=== PATIENT | male | born 1960 | race Caucasian/White ===

== ENCOUNTER 2019-03-21 11:22 | Emergency (ER) | payer OTHER ==
[~2019-03-21] VITALS: Ht 177.8 cm; Wt 117.0 kg
[2019-03-21 11:25] VITALS: Ht 177.8 cm; Wt 117.0 kg
[2019-03-21 11:59] LABS: BASOPHIL % 0.1 % (0-2); PLATELET COUNT 157 x10^3mcL (130-400); RED CELL DISTRIBUTION WIDTH 13.6 % (11.5-14.5)
[2019-03-21 12:16] LABS: CALCIUM 8.9 mg/dL (8.5-10.1); CARBON DIOXIDE 25.2 mmol/L (21-32); CHLORIDE SERUM 92 mmol/L (98-107); CREATININE SERUM 1.2 mg/dL (0.7-1.3); GFR1 > 60 mL/min; GLUCOSE SERUM 142 mg/dL (74-106); POTASSIUM SERUM 3.6 mmol/L (3.5-5.1); SODIUM SERUM 129 mmol/L (136-145)
[2019-03-21 12:21] LABS: ALKALINE PHOSPHATASE 100 U/L (46-116); ALT/SGPT 95 U/L (16-63); AST/SGOT 106 U/L (15-37); BILIRUBIN TOTAL 0.67 mg/dL (0.20-1.00); LIPASE 120 IU/L (73-393); TOTAL PROTEIN, SERUM 7.8 g/dL (6.4-8.2)
[2019-03-21 12:22] LABS: ALBUMIN 2.8 g/dL (3.4-5.0)
[2019-03-21 15:57] VITALS: BP 109/74
== END 2019-03-21 15:57 | disposition short-term general hospital (02) ==
LOC: ED 11:22
PROVIDERS: Emergency Medicine
DX: K81.0 Acute cholecystitis (principal); E86.0 Dehydration; Z88.8 Allergy status to other drugs, medicaments and biological substances
CPT/HCPCS: J1885; J2270; J2405; J2543; J7030; Q0092

== ENCOUNTER 2020-08-10 07:54 | Day surgery (SDC) | payer OTHER ==
[~2020-08-10] VITALS: Ht 167.6 cm; Wt 128.8 kg
[2020-08-10 08:43] VITALS: BP 137/93
[2020-08-10 13:27] VITALS: BP 129/84
== END 2020-08-10 12:10 | disposition home or self-care (01) ==
LOC: GI 07:54 → DS 07:54 → OR 11:00 → GI 12:10
PROVIDERS: ATTEND Internal Medicine Gastroenterology
DX: D64.9 Anemia, unspecified (principal); K31.89 Other diseases of stomach and duodenum; K21.9 Gastro-esophageal reflux disease without esophagitis; E11.9 Type 2 diabetes mellitus without complications; I10 Essential (primary) hypertension; J44.9 Chronic obstructive pulmonary disease, unspecified; E78.5 Hyperlipidemia, unspecified; Z68.42 Body mass index [BMI] 45.0-49.9, adult; E66.9 Obesity, unspecified; Z86.19 Personal history of other infectious and parasitic diseases; Z79.899 Other long term (current) drug therapy
CPT/HCPCS: 43235; J1200; J1610; J2250; J2310; J3010; J3490